=== PATIENT | female | born 1990 | race Hispanic/Latino ===

== ENCOUNTER 2021-09-21 06:06 | Inpatient (IN) | payer OTHER, MEDICAID ==
[~2021-09-21] VITALS: Ht 160 cm; Wt 81.6 kg
[2021-09-21 06:41] LABS: APPEARANCE,URINE Clear (CLEAR); BILIRUBIN,URINE Negative (NEGATIVE); COLOR,URINE Yellow (YELLOW); GLUCOSE, URINE (UA) Negative (NEGATIVE); KETONES,URINE Negative (NEGATIVE); LEUKOCYTE ESTERASE ,URINE Negative (NEGATIVE); NITRATE,URINE Negative (NEGATIVE); OCCULT BLOOD,URINE Moderate (NEGATIVE); PH,URINE 6.5 (5.0-8.0); PROTEIN,URINE Negative (NEGATIVE); UROBILINOGEN,URINE 0.2 mg/dL (0.2-1.0)
[2021-09-21] MEDS ORDERED: LACTATED RINGERS 1000ML 1,000 ML IV PRN (07:30)
[2021-09-21] MEDS ORDERED: EPHEDRINE SULFATE 50 MG/ML AMPULE IVP PRN (07:30)
[2021-09-21] MEDS ORDERED: LACTATED RINGERS 500 ML 500 ML IV PRN (07:30)
[2021-09-21] MEDS ORDERED: OXYTOCIN-LR 20 UNITS/1000 ML 1,000 ML IV SCH ×3 (07:30→14:30)
[2021-09-21] MEDS ORDERED: NALOXONE HCL 0.4 MG/1 ML ML IV PRN (07:30)
[2021-09-21 07:43] VITALS: BP 114/75
[2021-09-21] MEDS ORDERED: LEVO100C4 PO (07:49)
[2021-09-21] MEDS ORDERED: FERR-82 PO (07:49)
[2021-09-21] MEDS ORDERED: PREN-196 PO (07:49)
[2021-09-21] MEDS ORDERED: PROMETHAZINE HCL 25 MG/ML 1ML AMPULE IM PRN (08:00)
[2021-09-21 08:03] LABS: HEMATOCRIT 37.3 % (36-48); MEAN CORPUSCULAR HEMOGLOBIN 28.6 pg (27.0-33.0); MEAN CORPUSCULAR HGB CONC 33.8 g/dL (32.0-36.0); MEAN CORPUSCULAR VOLUME 84.6 fL (79-99); RED BLOOD CELL COUNT(AUTO) 4.41 MIL/uL (4.00-5.50); RED CELL DISTRIBUTION WIDTH 13.3 % (11.0-15.5); WHITE BLOOD COUNT (AUTO) 9.8 K/uL (4.8-10.8)
[2021-09-21 08:44] LABS: RAPID PLASMA REAGIN NONREACTIVE (NONREACTIVE)
[2021-09-21] MEDS: MEPERIDINE-PF 50 MG/ML SYG IVP PRN ×2 (10:12→12:25)
[2021-09-21] MEDS ORDERED: CLINDAMYCIN IVPB 600MG/50ML 50 ML IV ONE (11:41)
[2021-09-21] MEDS ORDERED: CLINDAMYCIN IVPB 600MG/50ML 50 ML IV SCH (12:00)
[2021-09-21] MEDS ORDERED: LIDOCAINE HCL 1% 20 ML VIAL ONE (13:37)
[2021-09-21] MEDS ORDERED: BENZOCAINE/LANOLIN/ALOE VERA 60 ML AEROSOL TP PRN (14:30)
[2021-09-21] MEDS ORDERED: LANOLIN 30GM OINTMENT TP PRN (14:30)
[2021-09-21] MEDS ORDERED: WITCH HAZEL 1 PAD TP PRN (14:30)
[2021-09-21] MEDS ORDERED: ACETAMINOPHEN WITH CODEINE 1 TAB TAB PO PRN (14:30)
[2021-09-21] MEDS ORDERED: ACETAMINOPHEN 325 MG TAB PO PRN (14:30)
[2021-09-21] MEDS ORDERED: MEASLES/MUMPS/RUBELLA VACCINE, LIVE 0.5 ML/VIAL SQ ONE (16:37)
[2021-09-21] MEDS ORDERED: DIPH,PERTUSS(ACELL),TET VAC/PF 0.5 ML VIAL IM ONE (16:37)
[2021-09-21 16:59] VITALS: BP 116/59
[2021-09-21 17:10] VITALS: BP 118/76
[2021-09-21 19:19] VITALS: BP 114/68
[2021-09-21] MEDS: DOCUSATE SODIUM 100 MG CAP PO SCH (21:18)
[2021-09-21 23:10] VITALS: BP 110/58
[2021-09-22 03:15] VITALS: BP 101/64
[2021-09-22 06:28] LABS: HEMATOCRIT 33.6 % (36-48); MEAN CORPUSCULAR HEMOGLOBIN 28.1 pg (27.0-33.0); MEAN CORPUSCULAR HGB CONC 32.4 g/dL (32.0-36.0); MEAN CORPUSCULAR VOLUME 86.6 fL (79-99); RED BLOOD CELL COUNT(AUTO) 3.88 MIL/uL (4.00-5.50); RED CELL DISTRIBUTION WIDTH 13.4 % (11.0-15.5); WHITE BLOOD COUNT (AUTO) 14.4 K/uL (4.8-10.8)
[2021-09-22] MEDS ORDERED: LEVOTHYROXINE 100 MCG TABLET PO SCH (06:30)
[2021-09-22 07:35] VITALS: BP 101/61
[2021-09-22] MEDS: DOCUSATE SODIUM 100 MG CAP PO SCH (08:49)
[2021-09-22 11:45] VITALS: BP 108/67
[2021-09-22 16:20] VITALS: BP 125/73
== END 2021-09-22 17:40 | disposition home or self-care (01) | DRG 807 ==
LOC: EDH 06:06 → OBSVTOIN 06:07 → LDH 06:07 → WSH 16:17
PROVIDERS: ADMIT Obstetrics & Gynecology; ATTEND Obstetrics & Gynecology
PROC: 10E0XZZ Delivery of Products of Conception, External Approach (ICD-10-PCS; principal; 2021-09-21)
PROC: 10907ZC Drainage of Amniotic Fluid, Therapeutic from Products of Conception, Via Natural or Artificial Opening (ICD-10-PCS; 2021-09-21)
PROC: 3E0134Z Introduction of Serum, Toxoid and Vaccine into Subcutaneous Tissue, Percutaneous Approach (ICD-10-PCS; 2021-09-21)
PROC: 3E0234Z Introduction of Serum, Toxoid and Vaccine into Muscle, Percutaneous Approach (ICD-10-PCS; 2021-09-21)
DX: O69.81X0 Labor and delivery complicated by cord around neck, without compression, not applicable or unspecified (principal); Z37.0 Single live birth; Z3A.40 40 weeks gestation of pregnancy; Z23 Encounter for immunization; Z88.8 Allergy status to other drugs, medicaments and biological substances; O99.824 Streptococcus B carrier state complicating childbirth
CPT/HCPCS: 36415; 81003; 85027; 86592; 86701; 86850; 86900; 86901; 87340; 87390; 90707; 90715; G0378; J2175; J2550; J2590; J3490